=== PATIENT | female | born 1995 | race Caucasian/White ===

== ENCOUNTER 2017-09-07 15:24 | Emergency (ER) | payer OTHER, MEDICAID ==
[~2017-09-07] VITALS: Ht 162.6 cm; Wt 71.2 kg
[2017-09-07 15:40] VITALS: BP 108/63; Ht 162.6 cm; Wt 71.2 kg
== END 2017-09-07 18:09 | disposition home or self-care (01) ==
LOC: ED 15:24
DX: J20.8 Acute bronchitis due to other specified organisms (principal)

== ENCOUNTER 2018-02-09 10:42 | Emergency (ER) | payer OTHER, MEDICAID ==
[~2018-02-09] VITALS: Ht 162.6 cm; Wt 75.7 kg
[2018-02-09 10:49] VITALS: Ht 162.6 cm; Wt 75.7 kg
[2018-02-09 13:14] VITALS: BP 104/59
== END 2018-02-09 13:14 | disposition home or self-care (01) ==
LOC: ED 10:42
DX: L03.115 Cellulitis of right lower limb (principal)
CPT/HCPCS: J3490; Q0092

== ENCOUNTER 2018-12-21 10:48 | Emergency (ER) | payer OTHER, MEDICAID ==
[~2018-12-21] VITALS: Ht 162.6 cm; Wt 72.1 kg
[2018-12-21 11:01] VITALS: BP 116/72; Ht 162.6 cm; Wt 72.1 kg
== END 2018-12-21 12:07 | disposition home or self-care (01) ==
LOC: ED 10:48
DX: J32.9 Chronic sinusitis, unspecified (principal); Z98.890 Other specified postprocedural states

== ENCOUNTER 2019-01-20 22:37 | Emergency (ER) | payer OTHER, MEDICAID ==
[~2019-01-20] VITALS: Ht 162.6 cm; Wt 74.8 kg
[2019-01-20 22:43] VITALS: Ht 162.6 cm; Wt 74.8 kg
[2019-01-20 23:42] LABS: BASOPHIL % 0.5 % (0-2); PLATELET COUNT 266 x10^3mcL (130-400); RED CELL DISTRIBUTION WIDTH 13.3 % (11.5-14.5)
[2019-01-20 23:50] LABS: CALCIUM 9.3 mg/dL (8.5-10.1); CARBON DIOXIDE 23.6 mmol/L (21-32); CHLORIDE SERUM 105 mmol/L (98-107); CREATININE SERUM 0.6 mg/dL (0.6-1.0); GFR1 > 60 mL/min; GLUCOSE SERUM 92 mg/dL (74-106); POTASSIUM SERUM 3.8 mmol/L (3.5-5.1); SODIUM SERUM 141 mmol/L (136-145)
[2019-01-20 23:55] LABS: ALBUMIN 3.8 g/dL (3.4-5.0); ALKALINE PHOSPHATASE 48 U/L (46-116); ALT/SGPT 18 U/L (14-59); AMYLASE 59 U/L (25-115); AST/SGOT 7 U/L (15-37); BILIRUBIN TOTAL 0.3 mg/dL (0.20-1.00); LIPASE 131 IU/L (73-393); TOTAL PROTEIN, SERUM 7.3 g/dL (6.4-8.2)
[2019-01-21 00:24] VITALS: BP 101/56
== END 2019-01-21 00:24 | disposition home or self-care (01) ==
LOC: ED 22:37
PROVIDERS: Emergency Medicine
DX: O26.891 Other specified pregnancy related conditions, first trimester (principal); R10.13 Epigastric pain; Z3A.01 Less than 8 weeks gestation of pregnancy
CPT/HCPCS: 36415; Q0092

== ENCOUNTER 2019-04-14 02:22 | Emergency (ER) | payer OTHER, MEDICAID ==
[~2019-04-14] VITALS: Ht 162.6 cm; Wt 74.8 kg
[2019-04-14 02:34] VITALS: Ht 162.6 cm; Wt 74.8 kg
[2019-04-14 04:01] VITALS: BP 128/74
== END 2019-04-14 04:01 | disposition home or self-care (01) ==
LOC: ED 02:22
DX: S93.601A Unspecified sprain of right foot, initial encounter (principal); S93.401A Sprain of unspecified ligament of right ankle, initial encounter; X50.1XXA Overexertion from prolonged static or awkward postures, initial encounter; Y93.9 Activity, unspecified; Y92.89 Other specified places as the place of occurrence of the external cause; Y99.8 Other external cause status
CPT/HCPCS: Q0092